=== PATIENT | male | born 2000 | race African-American/Black ===

== ENCOUNTER 2024-09-07 16:54 | Emergency (ER) | payer OTHER ==
[2024-09-07] MEDS ORDERED: AZITHROMYCIN 250 MG TAB ONE (17:08)
[2024-09-07] MEDS ORDERED: ACETAMINOPHEN 500 MG TAB ONE (17:08)
[2024-09-07 17:31] LABS: SARS-CoV-2 Antigen CONTROL BLUE LINE VIS/BG OK; SARS-CoV-2 Antigen Rapid Res Negative (Negative)
--- NOTE | 2024-09-07 18:06 | ER ---
Nurse's Notes [facility] Name: Matt Hawley Jr Age: 23 yrs Sex: Male : 2000 Arrival Date: 09/07/2024 Time: 16:54 Bed IW3 Private MD: Diagnosis: Cough;Moderate persistent asthma;Acute upper respiratory infection, unspecified Presentation: 09/07 17:00 Chief complaint: Patient states: cough, congestion, fever, chills, body aches that me1 started yesterday. Coronavirus screen: Vaccine status: Patient reports being unvaccinated. Ebola Screen: No symptoms or risks identified at this time. Initial Sepsis Screen: Does the patient meet any 2 criteria? No. Patient's initial sepsis screen is negative. Does the patient have a suspected source of infection?. Risk Assessment: Do you want to hurt yourself or someone else? Patient reports no desire to harm self or others. Onset of symptoms was September 06, 2024. 17:00 Method Of Arrival: Ambulatory ar1 17:00 Acuity: TYRA 4 me1 Triage Assessment: 17:01 General: Appears in no apparent distress. well groomed, well developed, well nourished, me1 Behavior is calm, cooperative, appropriate for age, Reports. Pain: Denies pain. EENT: Reports nasal congestion. Neuro: Level of Consciousness is awake, alert, obeys commands, Oriented to person, place, time, situation, Appropriate for age. Cardiovascular: Patient's skin is warm and dry. Respiratory: Airway is patent Respiratory effort is even, unlabored, Respiratory pattern is regular, symmetrical, Breath sounds with wheezes bilaterally. GI: No signs and/or symptoms were reported involving the gastrointestinal system. : No signs and/or symptoms were reported regarding the genitourinary system. Derm: Skin is intact, is healthy with good turgor, Skin is pink, warm \T\ dry. Musculoskeletal: No signs and/or symptoms reported regarding the musculoskeletal system. Historical: - Allergies: 17:01 No Known Allergies; me1 - Home Meds: 17:01 None [Active]; me1 - PMHx: 17:01 Asthma; me1 - PSHx: 17:01 None; me1 - Immunization history:: Adult Immunizations up to date. - Infectious Disease History:: Denies. - Social history:: Smoking status: Patient denies any tobacco usage or history of. - Family history:: not pertinent. 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 Vital Signs: 17:00 BP 125 / 66; Pulse 99; Resp 17; Temp 99; Pulse Ox 95% ; Weight 76.2 kg; Height 6 ft. 1 me1 in. ; Pain 0/10; 17:00 Body Mass Index 22.16 (76.20 kg, 185.42 cm) me1 17:00 Pain Scale: Adult ar1 ED Course: 16:57 Patient arrived in ED. 16:57 Johnny Aguirre MD is Attending Physician. [facility] 17:01 Triage completed. me1 17:01 Arm band placed on Patient placed in waiting room. me1 17:10 Jamila Grant, RN is Primary Nurse. me1 17:10 Strep Sent. me1 17:10 SARS RAPID Sent. me1 17:10 Flu Sent. me1 17:10 COVID swab sent to lab. Flu and/or RSV swab sent to lab. Strep swab sent to lab. me1 17:56 Chest Pa And Lat (2 Views) XRAY In Process Unspecified. EDNM 18:06 Hesham Valentino MD is Referral Physician. [facility] Administered Medications: 17:10 Drug: Acetaminophen PO 1000 mg PO once Route: PO; me1 17:10 Drug: AZITHromycin PO 500 mg PO once Route: PO; ar1 Outcome: 18:06 Discharge ordered by . [facility] 19:13 Discharged to home iw 19:13 Discharge instructions given to patient, Instructed on discharge instructions, follow up and referral plans. medication usage, Demonstrated understanding of instructions, 19:13 Patient left the ED. Signatures: Dispatcher [employer] EDNM Johnny Aguirre MD MD cha Williams, Irene, RN RN Eri Salas Jamila Grant, MARELY RN me1
--- NOTE | 2024-09-07 18:06 | EDPHYS ---
Physician Documentation [facility] Name: Matt Hawley Jr Age: 23 yrs Sex: Male : 2000 Arrival Date: 09/07/2024 Time: 16:54 Bed IW3 Private MD: ED Physician Johnny Aguirre HPI: 09/07 17:08 This 23 yrs old Male presents to ER via Ambulatory with complaints of Flu kenn Symptoms. 17:08 The patient has shortness of breath at rest, with light activity. Onset: The kenn symptoms/episode began/occurred 3 day(s) ago. Duration: The symptoms are continuous, and are steadily getting worse. The patient's shortness of breath is aggravated by coughing, light activity, supine position. The patient presents to the emergency department with wheezing, Current therapy: albuterol inhaler. Modifying factors: The symptoms are alleviated by cool environment, the symptoms are aggravated by exertion. The patient or guardian reports cough, described as mild, described as moderate, difficulty breathing, flu symptoms, arthralgias, low-grade fever, myalgias. Modifying factors: The symptoms are alleviated by elevating head, remaining still, the symptoms are aggravated by activity, hot environment, lying flat, talking. Associated signs and symptoms: Pertinent positives: productive cough. Historical: - Allergies: 17:01 No Known Allergies; me1 - Home Meds: 17:01 None [Active]; me1 - PMHx: 17:01 Asthma; me1 - PSHx: 17:01 None; me1 - Immunization history:: Adult Immunizations up to date. - Infectious Disease History:: Denies. - Social history:: Smoking status: Patient denies any tobacco usage or history of. - Family history:: not pertinent. ROS: 17:08 Constitutional: Negative for fever, chills, and weight loss, Eyes: Negative for injury, kenn pain, redness, and discharge, ENT: Negative for injury, pain, and discharge, Neck: Negative for injury, pain, and swelling, Cardiovascular: Negative for chest pain, palpitations, and edema, Abdomen/GI: Negative for abdominal pain, nausea, vomiting, diarrhea, and constipation, Back: Negative for injury and pain, : Negative for injury, bleeding, discharge, and swelling, MS/Extremity: Negative for injury and deformity, Skin: Negative for injury, rash, and discoloration, Neuro: Negative for headache, weakness, numbness, tingling, and seizure, Psych: Negative for depression, anxiety, suicide ideation, homicidal ideation, and hallucinations, Allergy/Immunology: Negative for hives, rash, and allergies, Endocrine: Negative for neck swelling, polydipsia, polyuria, polyphagia, and marked weight changes, Hematologic/Lymphatic: Negative for swollen nodes, abnormal bleeding, and unusual bruising, 17:08 Respiratory: Positive for cough, with green sputum, 17:08 Respiratory: Positive for wheezing, inspiratory, expiratory, Exam: 17:08 Constitutional: This is a well developed, well nourished patient who is awake, alert, kenn and in no acute distress. Head/Face: Normocephalic, atraumatic. Eyes: Pupils equal round and reactive to light, extra-ocular motions intact. Lids and lashes normal. Conjunctiva and sclera are non-icteric and not injected. Cornea within normal limits. Periorbital areas with no swelling, redness, or edema. ENT: Nares patent. No nasal discharge, no septal abnormalities noted. Tympanic membranes are normal and external auditory canals are clear. Oropharynx with no redness, swelling, or masses, exudates, or evidence of obstruction, uvula midline. Mucous membranes moist. Neck: Trachea midline, no thyromegaly or masses palpated, and no cervical lymphadenopathy. Supple, full range of motion without nuchal rigidity, or vertebral point tenderness. No Meningismus. Chest/axilla: Normal chest wall appearance and motion. Nontender with no deformity. No lesions are appreciated. Cardiovascular: Regular rate and rhythm with a normal S1 and S2. No gallops, murmurs, or rubs. Normal PMI, no JVD. No pulse deficits. Abdomen/GI: Soft, non-tender, with normal bowel sounds. No distension or tympany. No guarding or rebound. No evidence of tenderness throughout. Back: No spinal tenderness. No costovertebral tenderness. Full range of motion. Male : Normal genitalia with no discharge or lesions. Skin: Warm, dry with normal turgor. Normal color with no rashes, no lesions, and no evidence of cellulitis. MS/ Extremity: Pulses equal, no cyanosis. Neurovascular intact. Full, normal range of motion., bilateral aka Neuro: Awake and alert, GCS 15, oriented to person, place, time, and situation. Cranial nerves II-XII grossly intact. Motor strength 5/5 in all extremities. Sensory grossly intact. Cerebellar exam normal. Normal gait. Psych: Awake, alert, with orientation to person, place and time. Behavior, mood, and affect are within normal limits. 17:08 Respiratory: the patient does not display signs of respiratory distress, Respirations: labored breathing, is not present, asymmetrical chest movement, is not seen, accessory muscle usage, is absent, Breath sounds: bronchial sounds, that are moderate, are scattered, decreased breath sounds, that are mild, are located in both bases, rhonchi, that are mild, are scattered, stridor, is not appreciated, + upper airway congestion. wheezing: inspiratory expiratory that is moderate, is heard diffusely, Vital Signs: 17:00 BP 125 / 66; Pulse 99; Resp 17; Temp 99; Pulse Ox 95% ; Weight 76.2 kg; Height 6 ft. 1 me1 in. ; Pain 0/10; 17:00 Body Mass Index 22.16 (76.20 kg, 185.42 cm) me1 17:00 Pain Scale: Adult me1 MDM: 16:57 Medical Screening Exam initiated kenn 17:20 Differential diagnosis: Anxiety Reaction asthma, Bronchitis Chronic Obstructive kenn Pulmonary Disease acute asthma, exercise-induced asthma, reactive airway, pneumonia, pulmonary edema, reactive airway disease. Antibiotic administration: The patient is discharged and will get outpatient antibiotics, Zithromax. Immunization status:. Data reviewed: vital signs, nurses notes, lab test result(s), radiologic studies, plain films. Consideration of Admission/Observation Escalation of care including admission/observation considered. I considered the following discharge prescriptions or medication management in the emergency department Medications were administered in the Emergency Department. See MAR. Independent interpretation of the following test(s) in the Emergency Department X-Ray: My interpretation is CXR . Test considered but Not performed: Labs: NO CBC. MUSHROOM GROWER COMP MET. Historians other than the Patient: PT WELL INFORMED. Care significantly affected by the following chronic conditions: ASTHMA. 09/07 17:00 Order name: Flu kenn 09/07 17:00 Order name: SARS RAPID kenn 09/07 17:00 Order name: Strep kenn 09/07 17:34 Order name: Throat Culture EDTN 02/06 17:05 Order name: Chest Pa And Lat (2 Views) XRAY kenn Administered Medications: 17:10 Drug: Acetaminophen PO 1000 mg PO once Route: PO; me1 17:10 Drug: AZITHromycin PO 500 mg PO once Route: PO; me1 Disposition Summary: 09/07/24 18:06 Discharge Ordered Notes: Location: Home kenn Problem: new kenn Symptoms: have improved kenn Condition: Stable kenn Diagnosis - Cough kenn - Moderate persistent asthma kenn - Acute upper respiratory infection, unspecified kenn Followup: kenn - With: Private Physician - When: 2 - 3 days - Reason: Recheck today's complaints, Continuance of care, Re-evaluation by your physician Followup: kenn - With: Hesham Valentino MD - When: 2 - 3 days - Reason: Recheck today's complaints, Re-evaluation by your physician Discharge Instructions: - Discharge Summary Sheet kenn - Asthma, Adult kenn - Upper Respiratory Infection, Adult kenn - Cool Mist Vaporizer kenn - Upper Respiratory Infection, Adult, [id number] kenn - Asthma, Adult, [id number] kenn - Cough, Adult, [id number] kenn - Asthma Action Plan, Adult kenn - Cough, Adult [facility] Forms: - Medication Reconciliation Form [facility] - Antibiotic Education kenn - Prescription Opioid Use kenn - Patient Portal Instructions [facility] - Leadership Thank You Letter [facility] Prescriptions: - albuterol sulfate 90 mcg/actuation Inhalation HFA Aerosol Inhaler - inhale 2 puff INHALATION route every 4 to 6 hours as needed for shortness of kenn breath or wheezing; 2 unit; Refills: 0, Product Selection Permitted - Albuterol Sulfate 2.5 mg /3 mL (0.083 %) Inhalation Solution for Nebulization - inhale 1 unit NEBULIZATION route every 4-6 hours As needed; 45 unit; Refills: kenn 0, Product Selection Permitted - Prednisone 20 mg Oral tablet - take 2 tablets ORAL route once daily for 6 days; 12 tablet; Refills: 0, Product [facility] Selection Permitted - Zithromax 500 mg Oral tablet - take 1 tablet ORAL route once daily for 5 days BEGIN 09/08/24; 5 tablet; Refills: kenn 0, Product Selection Permitted Signatures: Dispatcher [employer] Johnny Mcrae MD MD cha Eddleman, Michelle, RN RN me1 Corrections: (The following items were deleted from the chart) 17:00 17:00 Influenza Screen (A \T\ B)+BA.LAB.BRZ ordered. EDMS EDMS 17:00 17:00 SARS-COV-2 Antigen Rapid+I.LAB.BRZ ordered. EDMS EDMS 17:00 17:00 Group A Streptococcus Rapid Sc+BA.LAB.BRZ ordered. EDMS EDMS
--- NOTE | 2024-09-07 18:58 | RAD REPORT ---
EXAMINATION: TWO VIEW CHEST XR CLINICAL INDICATION: Male, 23 years old. [facility] MAIN COUGH Bed Name: [facility] TECHNIQUE: 2 view radiographs of the chest were performed. COMPARISON: No prior exam. FINDINGS: The lungs are well inflated and clear. No pneumothorax or sizable effusion. The heart is normal in si ze. Mediastinal contours are unremarkable. IMPRESSION: No acute or significant abnormalities.
[2024-09-07 19:18] VITALS: BP 125/66; TEMP 99; O2SAT 95
== END 2024-09-07 19:13 | disposition home or self-care (01) ==
LOC: ER 16:54
DX: J06.9 Acute upper respiratory infection, unspecified (principal); J45.40 Moderate persistent asthma, uncomplicated; Z11.52 Encounter for screening for COVID-19
CPT/HCPCS: 36415; 71046; 87070; 87081; 87804; 87811; 99283